=== PATIENT | male | born 1960 | race Caucasian/White ===

== ENCOUNTER 2021-12-01 12:25 | Day surgery (SDC) | payer OTHER ==
[~2021-12-01] VITALS: Ht 170.2 cm; Wt 803.2 kg
[~2021-12-01 12:25] MED LIST: ATOR40TA75 PO; ECOT81TA5 PO; NAPR375T5 PO; NS 1,000 ML IV ONE; OMEP1CAP73 PO
[2021-12-01] MEDS ORDERED: LIDOCAINE 2% 100MG/5ML SDV (FOR ANES.) As Ordered ONE (14:26)
[2021-12-01] MEDS ORDERED: propofoL 200 MG/20 ML VIAL As Ordered ONE (14:26)
[2021-12-01 15:11] VITALS: BP 110/72
== END 2021-12-01 15:14 | disposition home or self-care (01) ==
LOC: M OPP 12:25
PROVIDERS: ATTEND Internal Medicine Gastroenterology
DX: K22.89 Other specified disease of esophagus (principal); K44.9 Diaphragmatic hernia without obstruction or gangrene; R12 Heartburn; Z79.82 Long term (current) use of aspirin; Z79.899 Other long term (current) drug therapy

== ENCOUNTER → 2022-04-24 | Outpatient (CLI) | payer OTHER ==
[~2022-04-24] MED LIST changes: -NS 1,000 ML IV ONE
== END ==
LOC: M RAD 13:28
PROVIDERS: ATTEND Family Medicine
DX: R42 Dizziness and giddiness (principal)

== ENCOUNTER → 2022-06-19 | Outpatient (CLI) | payer OTHER | LOC: M CARPUL 07:38 | PROVIDERS: ATTEND Internal Medicine Cardiovascular Disease | DX: I70.0 Atherosclerosis of aorta (principal) ==